=== PATIENT | female | born 1945 | race Caucasian/White ===

== ENCOUNTER → 2016-10-30 | Outpatient (CLI) | payer MEDICARE, BC ==
--- NOTE | ~2016-10-30 | CT57 ---
[facility] A Service of [facility] RADIOLOGY TEXT RESULTS PATIENT: FILIPPO SAMUEL LOCATION: [facility] : 49 UNIT #: [id number] AGE: [address]: Rober Gee MD SEX: F ORDER DR: [id number] [facility] [address] [place], [place] [address] [id number] O MR#: [id number] Acc #: [id number] NAME: FILIPPO SAMUEL : 1945 SEX: F STUDY DATE/TIME: 10/30/2016 12:04 UNIT: [facility] ROOM: STUDY DESCRIPTION: CT Chest Wo Cont Attending Physician: Rober Gee M.D. Referring Physician: Rober Gee M.D. Ordering Physician: Rober Gee M.D. Primary Care Physician: Rigo Dubon M.D. MEDICAL IMAGING REPORT This report is preliminary unless electronic signature is present EXAM CT chest without contrast INDICATIONS Restaging lung cancer. Observation of response to therapy and metastatic disease. PROCEDURE Unenhanced CT chest. This CT exam was performed with one or more of the following radiation dose reduction techniques: automatic exposure control, adjustment of mA and/or kV according to patient size, and iterative reconstruction. COMPARISON 05/01/2016 FINDINGS No suspicious pulmonary nodule. There are a few small noncalcified nodules in the lungs but these are stable and reportedly stable for over 2 years. Low-attenuation nodularity in the right thyroid lobe is unchanged. No adenopathy. No aggressive appearing bone lesion. IMPRESSION 1. No evidence for malignancy in the chest. 2. Refer to the separately dictated abdomen CT for findings below the diaphragm. Dictated by... Jean Thomas M.D. THIS IS AN ELECTRONICALLY VERIFIED REPORT Jean Thomas M.D. at 10/31/2016 9:28 AM [facility] A Service [facility] RADIOLOGY TEXT RESULTS PATIENT: FILIPPO SAMUEL LOCATION: [facility] : 49 UNIT #: [id number] AGE: [address]: Rober Gee MD SEX: F ORDER DR: [email or web address]/[email or web address] TD: 10/30/2016 15:02 JOB #: [id number] MEDICAL IMAGING REPORT Page 1 of 1 COPY
--- NOTE | ~2016-10-30 | CT7 ---
[facility] A Service [facility] RADIOLOGY TEXT RESULTS PATIENT: FILIPPO SAMUEL LOCATION: [facility] : 49 UNIT #: [id number] AGE: [address]: Rober Gee MD SEX: F ORDER DR: [id number] [id number] [place], [place] [address] [id number] O MR#: [id number] Acc #: [id number] NAME: FILIPPO SAMUEL : 1945 SEX: F STUDY DATE/TIME: 10/30/2016 12:04 UNIT: [facility] ROOM: STUDY DESCRIPTION: CT Abdomen Wo Cont Attending Physician: Rober Gee M.D. Referring Physician: Rober Gee M.D. Ordering Physician: Rober Gee M.D. Primary Care Physician: Rigo Dubon M.D. MEDICAL IMAGING REPORT This report is preliminary unless electronic signature is present EXAM CT abdomen without contrast. INDICATION Restaging lung cancer. Observation for metastatic disease. PROCEDURE Unenhanced CT of the abdomen. This CT exam was performed with one or more of the following radiation dose reduction techniques: automatic exposure control, adjustment of mA and/or kV according to patient size, and iterative reconstruction. COMPARISON None FINDINGS Refer to separately dictated chest CT for thoracic findings. Liver, spleen, pancreas, unremarkable, unenhanced appearance. Previous cholecystectomy. Bilateral benign adrenal myelolipomas. Largest is on the right and measures 6.3 cm. Bowel loops are nondilated. No adenopathy in the abdomen. No aggressive appearing bone lesions. IMPRESSION 1. No evidence for metastatic disease to the abdomen. 2. Bilateral benign adrenal myelolipomas. Dictated by... Jean Thomas M.D. [facility] A Service [facility] RADIOLOGY TEXT RESULTS PATIENT: FILIPPO SAMUEL LOCATION: [facility] : 49 UNIT #: [id number] AGE: [address]: Rober Gee MD SEX: F ORDER DR: THIS IS AN ELECTRONICALLY VERIFIED REPORT Jean Thomas M.D. at 10/31/2016 9:28 AM [email or web address]/[email or web address] TD: 10/30/2016 15:58 JOB #: [id number] MEDICAL IMAGING REPORT Page 1 of 1 COPY
== END | disposition home or self-care (01) ==
LOC: CCAT 11:44
DX: C34.90 Malignant neoplasm of unspecified part of unspecified bronchus or lung (principal); D17.71 Benign lipomatous neoplasm of kidney
CPT/HCPCS: 71250; 74150